=== PATIENT | male | born 1985 | race Caucasian/White ===

== ENCOUNTER 2016-10-25 00:34 | Emergency (ER) | payer SELFPAY ==
[~2016-10-25] VITALS: Ht 177.8 cm; Wt 81.6 kg
[2016-10-25 00:47] VITALS: BP 100/61
--- NOTE | 2016-10-25 01:33 | PHYS DOC ---
Past Medical History Past Medical History: Unknown Past Surgical History: No Surgical History Alcohol Use: Heavy Drug Use: Methadone Adult General Chief Complaint Chief Complaint: BACK PAIN OR INJURY HPI HPI 31-year-old gentleman presenting to the emergency department today with low back pain after having police restrain him. His pain is mild intermittent nonradiating and without alleviating factors. He denies head injury or head trauma. He denies loss of consciousness. He has no other complaints. He denies any other complaints. Review of systems is negative for chest pain shortness of breath nausea vomiting. All other review of systems is negative unless otherwise noted in history of present illness. ED course: 31-year-old gentleman presenting to the emergency department today with low back pain after police restrained him. Initial gcs calculated by nursing staff was calculated to be 10. Patient opened eyes to verbal stimuli for me. Patient was intoxicated clinically. Examination is a patient's back shows no tenderness midline. No ecchymosis lacerations abrasions or evidence of trauma. Physical exam shows no evidence of trauma to head or neck. He was observed in the emergency department. When the patient was asked to provide urine specimen sent blood work he became agitated. He suddenly had a GCS of 15. He was able to walk without any difficulties. He was angry. He denied suicidal or homicidal ideation. He was able to walk with a steady gait and did not have slurred speech. Unfortunately were unable to complete his workup because the patient wanted to leave immediately. He demonstrated medical decision making capacity. The patient was then discharged home in stable condition to follow up with their primary care physician over the next 2-3 days. They were to return if their symptoms worsened or if they were concerned for any reason. Face-to- face discharge instructions and return precautions were given. Patient's questions were answered to their satisfaction. Patient is comfortable plan. Review of Systems Review of Systems SEE ABOVE. Allergies Allergies Allergies Coded Allergies Type Severity Reaction Last Updated Verified No Known Drug Allergies 10/25/16 No Physical Exam Physical Exam Constitutional: Well developed, well nourished, no acute distress, non-toxic appearance. [] HENT: Normocephalic, atraumatic, bilateral external ears normal, oropharynx moist, no oral exudates, nose normal. [] Eyes: PERRLA, EOMI, conjunctiva normal, no discharge. [] Neck: Normal range of motion, no tenderness, supple, no stridor. [] Cardiovascular:Heart rate regular rhythm, no murmur [] Lungs & Thorax: Bilateral breath sounds clear to auscultation [] Abdomen: Bowel sounds normal, soft, no tenderness, no masses, no pulsatile masses. [] Skin: Warm, dry, no erythema, no rash. [] Back: No tenderness, no CVA tenderness. [] Extremities: No tenderness, no cyanosis, no clubbing, ROM intact, no edema. [] Neurologic: opens eyes to voice and localizes to pain, normal motor function, normal sensory function, no focal deficits noted. [] Psychologic: Affect normal, judgement normal, mood normal. [] Current Patient Data Vital Signs Vital Signs Date Time Temp Pulse Resp B/P (MAP) Pulse Ox O2 Delivery O2 Flow Rate FiO2 10/25/16 00:47 97.6 90 8 100/61 (74) 92 Room Air 97.6 Lab Values Laboratory Tests Test 10/25/16 00:42 White Blood Count 9.3 x10^3/uL (4.0-11.0) Red Blood Count 4.80 x10^6/uL (4.30-5.70) Hemoglobin 15.5 g/dL (13.0-17.5) Hematocrit 45.6 % (39.0-53.0) Mean Corpuscular Volume 95 fL (79-100) Mean Corpuscular Hemoglobin 32 pg (25-35) Mean Corpuscular Hemoglobin Concent 34 g/dL (31-37) Red Cell Distribution Width 13.3 % (11.5-14.5) Platelet Count 235 x10^3/uL (140-400) Neutrophils (%) (Auto) 48 % (31-73) Lymphocytes (%) (Auto) 42 % (24-48) Monocytes (%) (Auto) 7 % (0-9) Eosinophils (%) (Auto) 4 % (0-3) H Basophils (%) (Auto) 0 % (0-3) Neutrophils # (Auto) 4.4 x10^3uL (1.8-7.7) Lymphocytes # (Auto) 3.8 x10^3/uL (1.0-4.8) Monocytes # (Auto) 0.6 x10^3/uL (0.0-1.1) Eosinophils # (Auto) 0.4 x10^3/uL (0.0-0.7) Basophils # (Auto) 0.0 x10^3/uL (0.0-0.2) Sodium Level 142 mmol/L (136-145) Potassium Level 3.2 mmol/L (3.5-5.1) L Chloride Level 103 mmol/L (98-107) Carbon Dioxide Level 26 mmol/L (21-32) Anion Gap 13 (6-14) Blood Urea Nitrogen 8 mg/dL (8-26) Creatinine 1.1 mg/dL (0.7-1.3) Estimated GFR (Cockcroft-Gault) 77.6 Glucose Level 86 mg/dL (70-99) Serum Osmolality 314 mOsm/Kg (279-304) H Calcium Level 9.2 mg/dL (8.5-10.1) Total Bilirubin 0.3 mg/dL (0.2-1.0) Direct Bilirubin 0.1 mg/dL (0.0-0.2) Aspartate Amino Transferase (AST) 22 U/L (15-37) Alanine Aminotransferase (ALT) 32 U/L (16-63) Alkaline Phosphatase 87 U/L (46-116) Total Protein 7.6 g/dL (6.4-8.2) Albumin 4.2 g/dL (3.4-5.0) Lipase 175 U/L (73-393) Salicylates Level 3.5 mg/dL (2.8-20.0) Salicylate Last Dose Date Salicylate Last Dose Time Acetaminophen Level < 2 mcg/ml (10-30) L Acetaminophen Last Dose Date Acetaminophen Last Dose Time Ethyl Alcohol Level 93 mg/dL (0-10) H Laboratory Tests 10/25/16 00:42 Laboratory Tests 10/25/16 00:42 EKG EKG [] Radiology/Procedures Radiology/Procedures [] Course & Med Decision Making Course & Med Decision Making Pertinent Labs and Imaging studies reviewed. (See chart for details) [] Dragon Disclaimer Dragon Disclaimer This electronic medical record was generated, in whole or in part, using a voice recognition dictation system. Departure Departure Impression: Primary Impression: Substance abuse Additional Impression: Back pain Disposition: HOME, SELF-CARE Condition: STABLE Patient Instructions: Substance Abuse-Brief Additional Instructions: Thank you for allowing us to participate in your care today. Followup with your primary care physician in 3 days if your symptoms do not improve. Call your Primary Doctor tomorrow and inform them of your visit today. If you do not have a primary care provider you can ask for a list of our primary care providers. Return to the emergency department you have any new or concerning findings. This should be evaluated by the primary care physician and any necessary consulting services for continued management within a few days after discharge. Return to emergency room if you have any new or concerning symptoms including but not limited to fever, chills, nausea, vomiting, intractable pain, any new rashes, chest pain, shortness of air, uncontrolled bleeding, difficulty breathing, and/or vision loss. Problem Qualifiers DREW HILL MD Oct 25, 2016 01:33
[2016-10-25 01:48] LABS: BASO % 0 % (0-3); EOS % 4 % (0-3); HEMATOCRIT 45.6 % (39.0-53.0); HEMOGLOBIN 15.5 g/dL (13.0-17.5); LYMPH # 3.8 x10^3/uL (1.0-4.8); LYMPH % 42 % (24-48); MEAN CORPUSCULAR HEMOGLOBIN 32 pg (25-35); MEAN CORPUSCULAR HGB CONC 34 g/dL (31-37); MEAN CORPUSCULAR VOLUME 95 fL (79-100); MONO % 7 % (0-9); NEUT % 48 % (31-73); PLATELET COUNT 235 x10^3/uL (140-400); RED CELL DISTRIBUTION WIDTH 13.3 % (11.5-14.5); WHITE BLOOD COUNT 9.3 x10^3/uL (4.0-11.0)
[2016-10-25 02:01] LABS: CALCIUM 9.2 mg/dL (8.5-10.1); CREATININE 1.1 mg/dL (0.7-1.3); GFR 77.6; POTASSIUM 3.2 mmol/L (3.5-5.1)
[2016-10-25 02:04] LABS: ETHANOL 93 mg/dL (0-10)
[2016-10-25 02:09] LABS: ALBUMIN 4.2 g/dL (3.4-5.0); DIRECT BILIRUBIN 0.1 mg/dL (0.0-0.2); TOTAL BILIRUBIN 0.3 mg/dL (0.2-1.0); TOTAL PROTEIN 7.6 g/dL (6.4-8.2)
--- NOTE | 2016-10-25 03:15 | RAD ---
CT HEAD AND CERVICAL SPINE WITHOUT CONTRAST History: Somnolence, patient unresponsive. Comparison: CT head dated November 10, 2009. Procedure: Axial images are obtained of the head from the skull base through the vertex without IV contrast. Noncontrast helical CT of the cervical spine was performed. Axial, sagittal, and coronal reconstructions were obtained. RS compliance statement: One or more of the following individualized dose reduction techniques were utilized for this examination: 1. Automated exposure control 2. Adjustment of the mA and/or kV according to patient size 3. Use of iterative reconstruction technique Head Findings: The ventricles and sulci are normal for the patient's age. No mass-effect, midline shift, hemorrhage or obvious acute infarction is identified. Bone windows demonstrate no significant calvarial abnormality. There is mild mucosal thickening within the ethmoid air cells. Mastoid air cells are well aerated. There is increased density of the periphery of the right globe, new when compared to the previous exam. Cervical Spine Findings: There is no evidence of acute fracture or dislocation. Normal cervical lordosis and alignment is maintained. Vertebral body heights are maintained. Posterior elements are intact. Visualized soft tissues of the neck demonstrate no acute finding. The visualized lung apices are clear. IMPRESSION: 1. No acute intracranial abnormality. Increased density of the periphery of the right globe, new from prior exam. 2. No acute fracture of the cervical spine. Electronically signed by: Albertina Lehman MD (10/25/2016 3:12 AM)
== END 2016-10-25 02:25 | disposition left against medical advice (07) ==
LOC: ER 00:34
DX: M54.5 Low back pain (principal); F15.10 Other stimulant abuse, uncomplicated; R45.1 Restlessness and agitation; F10.129 Alcohol abuse with intoxication, unspecified; Y90.4 Blood alcohol level of 80-99 mg/100 ml
CPT/HCPCS: 36415; 70450; 72125; 80048; 80076; 80320; 80329; 83690; 83930; 85027; G0480; 99285-25

== ENCOUNTER 2017-03-28 23:02 | Emergency (ER) | payer SELFPAY ==
[~2017-03-28] VITALS: Ht 172.7 cm; Wt 81.6 kg
[2017-03-29 02:09] VITALS: BP 114/54
--- NOTE | 2017-03-29 02:33 | PHYS DOC ---
Past Medical History Past Medical History: No Pertinent History Past Surgical History: No Surgical History Alcohol Use: Heavy Drug Use: Marijuana Adult General Chief Complaint Chief Complaint: ALCOHOL INTOXICATION HPI HPI Patient is a 32 year old male with history of chronic alcoholism who presents with alcohol abuse and intoxication. Patient was found sleeping in parked car in public. EMS were contacted and the patient states he drank an unspecified of alcohol earlier in the day. Denies history of trauma injury. No gross signs of trauma. No other symptoms or complaints. Review of Systems Review of Systems ROS as per HPI. All other systems were reviewed and found to be within normal limits, except as documented in this note. Current Medications Current Medications Current Medications Medications (Trade) Dose Ordered Sig/Haris Start Time Stop Time Status Last Admin Dose Admin Ammonia (Aromatic Spirit) (Amoply) 1 each STK-MED ONCE 03/29/17 02:41 03/29/17 02:42 DC Allergies Allergies Allergies Coded Allergies Type Severity Reaction Last Updated Verified No Known Drug Allergies 10/25/16 No Physical Exam Physical Exam Constitutional: Well developed, well nourished, smells of intoxicants. [] HENT: Normocephalic, atraumatic, bilateral external ears normal, oropharynx moist, no oral exudates, nose normal. [] Eyes: PERRLA, EOMI, conjunctiva injected. [] Neck: Normal range of motion. [] Cardiovascular:Heart rate regular rhythm, no murmur. [] Lungs & Thorax: Bilateral breath sounds clear to auscultation. [] Abdomen: Bowel sounds normal, soft, no tenderness, no masses, no pulsatile masses. [] Skin: No rash. [] Extremities: No tenderness. [] Neurologic: Alert and oriented, normal motor function, normal sensory function, no focal deficits noted. [] Psychologic: Affect, flat.[] Current Patient Data Vital Signs Vital Signs Date Time Temp Pulse Resp B/P (MAP) Pulse Ox O2 Delivery O2 Flow Rate FiO2 03/29/17 02:09 80 17 114/54 (74) 94 Room Air 03/29/17 00:39 2.0 03/28/17 23:02 98.0 98.0 EKG EKG [] Radiology/Procedures Radiology/Procedures [] Course & Med Decision Making Course & Med Decision Making Pertinent Labs and Imaging studies reviewed. (See chart for details) Patient monitored in the ED upwards of 4 hours and allowed to sober up. A&Ox4, walks with steady gait at time of discharge. ] Dragon Disclaimer Dragon Disclaimer This electronic medical record was generated, in whole or in part, using a voice recognition dictation system. Departure Departure Impression: Primary Impression: Alcohol abuse Disposition: 01 HOME, SELF-CARE Condition: STABLE Referrals: NO PCP (PCP) NARESH AL DO Mar 29, 2017 02:33
[2017-03-29] MEDS ORDERED: AMMONIA AROMATIC 15% INHALANT AMPUL. ONE (02:41)
== END 2017-03-29 02:52 | disposition home or self-care (01) ==
LOC: ER 23:02
DX: F10.10 Alcohol abuse, uncomplicated (principal); F12.10 Cannabis abuse, uncomplicated
CPT/HCPCS: 99284